=== PATIENT | male | born 1950 | race Caucasian/White ===

== ENCOUNTER 2016-04-12 01:50 | Inpatient (IN) | payer MEDICARE, OTHER ==
[2016-04-12] VITALS (8 sets, daily range): BP systolic 113–148; RESP 18; TEMP 98.5–101.2; Ht 175.3 cm; Wt 95.7 kg
[~2016-04-12] VITALS: Ht 175.3 cm; Wt 95.7 kg
[2016-04-12] MEDS ORDERED: NALOXONE 2 MG/2 ML SYRINGE ONE (02:06)
[2016-04-12] MEDS ORDERED: SODIUM CHLORIDE 0.9% 1,000 ML ONE (04:26)
[2016-04-12] MEDS ORDERED: CEFTRIAXONE 1 GM VIAL ONE (06:29)
[2016-04-12] MEDS ORDERED: SODIUM CHLORIDE 0.9% 100 ML IV ONE (06:30)
[2016-04-12] MEDS ORDERED: ONDANSETRON 4 MG VIAL IV PRN (06:45)
[2016-04-12] MEDS ORDERED: SALINE FLUSH 10 ML FLUSH PRN (06:45)
[2016-04-12] MEDS ORDERED: PHARMACY TO DOSE LEVAQUIN IV SCH (06:45)
[2016-04-12] MEDS: SALINE FLUSH 10 ML FLUSH SCH ×2 (08:00→20:48)
[2016-04-12] MEDS ORDERED: **NOTE TO NURSE XX SCH (09:01)
[2016-04-12] MEDS ORDERED: LEVOFLOXACIN 750 MG/150 ML 150 ML IV SCH (10:15)
[2016-04-12] MEDS: DULoxetine 30 MG CAP PO SCH ×2 (10:48→20:48)
[2016-04-12] MEDS: TAMSULOSIN 0.4 MG CAP PO SCH (10:48)
[2016-04-12] MEDS: CLOPIDOGREL 75 MG TAB PO SCH (10:48)
[2016-04-12] MEDS: PANTOPRAZOLE 40 MG TAB PO SCH (10:48)
[2016-04-12] MEDS: SODIUM CHLORIDE 0.9% 1,000 ML IV SCH ×2 (10:48→20:48)
[2016-04-12] MEDS: ISOSORBIDE MONO 30 MG TAB PO SCH (10:48)
[2016-04-12] MEDS: Aspirin 325 MG TAB PO SCH (10:49)
[2016-04-12] MEDS: RANOLAZINE ER 500 MG TAB PO SCH ×2 (10:49→20:48)
[2016-04-12] MEDS: ACETAMINOPHEN 325 MG TAB PO PRN (13:09)
[2016-04-12] MEDS: TRAMADOL 50 MG TAB PO PRN (19:24)
[2016-04-12] MEDS ORDERED: MISSING DOSE XX ONE (20:30)
[2016-04-12] MEDS: QUEtiapine 25 MG TAB PO SCH (20:48)
[2016-04-12] MEDS: METOPROLOL XL 50 MG TAB PO SCH (20:48)
[2016-04-13] VITALS (7 sets, daily range): BP systolic 129–175; RESP 18–20; TEMP 98.3–99
[2016-04-13] MEDS: TRAMADOL 50 MG TAB PO PRN ×2 (04:03→12:00)
[2016-04-13] MEDS: SODIUM CHLORIDE 0.9% FLUSH BAG 500 ML IV SCH (05:36)
[2016-04-13] MEDS: PANTOPRAZOLE 40 MG TAB PO SCH (06:18)
[2016-04-13] MEDS: SALINE FLUSH 10 ML FLUSH SCH ×2 (08:10→19:59)
[2016-04-13] MEDS: ACETAMINOPHEN 325 MG TAB PO PRN (08:11)
[2016-04-13] MEDS: RANOLAZINE ER 500 MG TAB PO SCH ×2 (08:11→19:56)
[2016-04-13] MEDS: Aspirin 325 MG TAB PO SCH (08:11)
[2016-04-13] MEDS: DULoxetine 30 MG CAP PO SCH ×2 (08:11→19:57)
[2016-04-13] MEDS: TAMSULOSIN 0.4 MG CAP PO SCH (08:11)
[2016-04-13] MEDS: CLOPIDOGREL 75 MG TAB PO SCH (08:12)
[2016-04-13] MEDS: ISOSORBIDE MONO 30 MG TAB PO SCH (08:12)
[2016-04-13] MEDS: LEVOFLOXACIN 750 MG/150 ML 150 ML IV SCH (11:59)
[2016-04-13] MEDS ORDERED: CYCLOBENZAPRINE 10 MG TAB PO PRN (16:50)
[2016-04-13] MEDS ORDERED: MISSING DOSE XX ONE ×3 (17:20→20:15)
[2016-04-13] MEDS: GABAPENTIN 600 MG TAB PO SCH ×2 (17:25→19:57)
[2016-04-13] MEDS: OXYCODONE/APAP 5/325 TAB PO PRN (17:26)
[2016-04-13] MEDS: METOPROLOL XL 50 MG TAB PO SCH (19:57)
[2016-04-13] MEDS: MORPHINE ER 15 MG TAB PO SCH (19:58)
[2016-04-13] MEDS: ZOLPIDEM 5 MG TAB PO SCH (19:58)
[2016-04-13] MEDS: QUEtiapine 25 MG TAB PO SCH (20:36)
[2016-04-14] VITALS (7 sets, daily range): BP systolic 114–137; RESP 16–18; TEMP 97.7–98.7
[2016-04-14] MEDS: TRAMADOL 50 MG TAB PO PRN ×2 (00:55→12:28)
[2016-04-14] MEDS: SODIUM CHLORIDE 0.9% FLUSH BAG 500 ML IV SCH (06:14)
[2016-04-14] MEDS: PANTOPRAZOLE 40 MG TAB PO SCH (06:14)
[2016-04-14] MEDS: OXYCODONE/APAP 5/325 TAB PO PRN ×3 (06:15→22:45)
[2016-04-14] MEDS: DULoxetine 30 MG CAP PO SCH ×2 (09:23→21:27)
[2016-04-14] MEDS: SALINE FLUSH 10 ML FLUSH SCH ×2 (09:23→21:28)
[2016-04-14] MEDS: ISOSORBIDE MONO 30 MG TAB PO SCH (09:23)
[2016-04-14] MEDS: LEVOFLOXACIN 750 MG/150 ML 150 ML IV SCH (09:23)
[2016-04-14] MEDS: GABAPENTIN 600 MG TAB PO SCH ×4 (09:24→21:27)
[2016-04-14] MEDS: RANOLAZINE ER 500 MG TAB PO SCH ×2 (09:24→21:27)
[2016-04-14] MEDS: CLOPIDOGREL 75 MG TAB PO SCH (09:24)
[2016-04-14] MEDS: MORPHINE ER 15 MG TAB PO SCH ×2 (09:24→21:26)
[2016-04-14] MEDS: Aspirin 325 MG TAB PO SCH (09:24)
[2016-04-14] MEDS: TAMSULOSIN 0.4 MG CAP PO SCH (09:24)
[2016-04-14] MEDS: ZOLPIDEM 5 MG TAB PO SCH (21:26)
[2016-04-14] MEDS: QUEtiapine 25 MG TAB PO SCH (21:27)
[2016-04-14] MEDS: METOPROLOL XL 50 MG TAB PO SCH (21:27)
[2016-04-15 04:00] VITALS: BP_SYST 124; RESP 20; TEMP 98.1
[2016-04-15] MEDS: SODIUM CHLORIDE 0.9% FLUSH BAG 500 ML IV SCH (06:00)
[2016-04-15] MEDS: PANTOPRAZOLE 40 MG TAB PO SCH (06:25)
[2016-04-15 07:15] VITALS: BP_SYST 116; RESP 16; TEMP 98.2
[2016-04-15] MEDS: DULoxetine 30 MG CAP PO SCH (08:29)
[2016-04-15] MEDS: CLOPIDOGREL 75 MG TAB PO SCH (08:29)
[2016-04-15] MEDS: Aspirin 325 MG TAB PO SCH (08:29)
[2016-04-15] MEDS: SALINE FLUSH 10 ML FLUSH SCH (08:29)
[2016-04-15] MEDS: GABAPENTIN 600 MG TAB PO SCH ×2 (08:29→13:03)
[2016-04-15] MEDS: TAMSULOSIN 0.4 MG CAP PO SCH (08:29)
[2016-04-15] MEDS: MORPHINE ER 15 MG TAB PO SCH (08:30)
[2016-04-15] MEDS: RANOLAZINE ER 500 MG TAB PO SCH (08:33)
[2016-04-15] MEDS: ISOSORBIDE MONO 30 MG TAB PO SCH (08:33)
[2016-04-15] MEDS ORDERED: LEVOFLOXACIN 750 MG TAB PO SCH (09:00)
[2016-04-15] MEDS: OXYCODONE/APAP 5/325 TAB PO PRN (10:01)
[2016-04-15 11:18] VITALS: BP_SYST 116; RESP 16; TEMP 98.2
[2016-04-15 11:57] VITALS: BP_SYST 111
[2016-04-15 11:58] VITALS: RESP 16; TEMP 98.2
== END 2016-04-15 14:10 | disposition home or self-care (01) | DRG 871 ==
LOC: ENRESERVDT → ENRESERVTM → ER 01:50 → EMR 06:44 → 3NT 08:30 → OBSVTOIN 04-13 17:02 → ENPENDDIS 04-13 17:02
PROVIDERS: ADMIT Family Medicine; ATTEND Family Medicine
DX: A41.9 Sepsis, unspecified organism (principal); J18.9 Pneumonia, unspecified organism; G93.41 Metabolic encephalopathy; N17.9 Acute kidney failure, unspecified; N18.3 Chronic kidney disease, stage 3 (moderate); N39.0 Urinary tract infection, site not specified; B96.20 Unspecified Escherichia coli [E. coli] as the cause of diseases classified elsewhere; I12.9 Hypertensive chronic kidney disease with stage 1 through stage 4 chronic kidney disease, or unspecified chronic kidney disease; F32.9 Major depressive disorder, single episode, unspecified; M54.5 Low back pain; Z95.1 Presence of aortocoronary bypass graft; Z82.49 Family history of ischemic heart disease and other diseases of the circulatory system; Z79.82 Long term (current) use of aspirin
CPT/HCPCS: 36415; 70450; 71010; 80053; 81001; 82553; 82947; 83605; 84484; 85025; 85379; 85610; 85730; 87040; 87071; 87077; 87088; 87186; 87278; 87299; 87804; 94799; 96360; 96365; 96375; 99219; 99232; 99233

== ENCOUNTER 2016-04-24 19:58 | Inpatient (IN) | payer MEDICARE, OTHER ==
[~2016-04-24] VITALS: Ht 175.3 cm; Wt 94.8 kg
[2016-04-24] MEDS ORDERED: SODIUM CHLORIDE 0.9% 1,000 ML ONE (21:22)
[2016-04-24] MEDS ORDERED: SODIUM CHLORIDE 0.9% 100 ML IV ONE ×2 (23:25→23:42)
[2016-04-24] MEDS ORDERED: CEFTRIAXONE 1 GM VIAL ONE ×2 (23:25→23:42)
[2016-04-25] VITALS (7 sets, daily range): BP systolic 117–178; RESP 16–18; TEMP 98–99.4; Ht 175.3 cm; Wt 94.8 kg
[2016-04-25] MEDS ORDERED: ALU/MAG/SIM 30 ML UDC PO PRN (01:00)
[2016-04-25] MEDS ORDERED: SALINE FLUSH 10 ML FLUSH PRN (01:00)
[2016-04-25] MEDS ORDERED: BISACODYL 10 MG SUPP RECTAL PRN (01:00)
[2016-04-25] MEDS ORDERED: MAG HYDROX 30 ML UDC PO PRN (01:00)
[2016-04-25] MEDS ORDERED: ACETAMINOPHEN 325 MG TAB PO PRN (01:00)
[2016-04-25] MEDS ORDERED: SODIUM CHLORIDE 0.9% 1,000 ML IV SCH ×2 (01:00→09:00)
[2016-04-25] MEDS ORDERED: BISACODYL EC 5 MG TAB PO PRN (01:00)
[2016-04-25] MEDS ORDERED: PHARMACY TO DOSE ZOSYN IV SCH (01:10)
[2016-04-25] MEDS: SODIUM CHLORIDE 0.9% FLUSH BAG 500 ML IV SCH (05:57)
[2016-04-25] MEDS: PIPERACIL/TAZO 3.375GM/50ML 50 ML IV SCH ×2 (06:04→12:00)
[2016-04-25] MEDS: SALINE FLUSH 10 ML FLUSH SCH ×2 (06:53→20:00)
[2016-04-25] MEDS: FAMOTIDINE 20 MG TAB PO SCH ×2 (07:41→21:29)
[2016-04-25] MEDS: ENOXAPARIN 30 MG/0.3 ML SYR SUBQ SCH (07:42)
[2016-04-25] MEDS: Aspirin 325 MG TAB PO SCH (11:35)
[2016-04-25] MEDS ORDERED: CEPHALEXIN 500 MG CAP PO SCH (11:35)
[2016-04-25] MEDS: PANTOPRAZOLE 40 MG TAB PO SCH (13:23)
[2016-04-25] MEDS: TAMSULOSIN 0.4 MG CAP PO SCH (13:24)
[2016-04-25] MEDS: CYCLOBENZAPRINE 10 MG TAB PO PRN (13:24)
[2016-04-25] MEDS: DULoxetine 30 MG CAP PO SCH ×2 (13:24→21:29)
[2016-04-25] MEDS: RANOLAZINE ER 500 MG TAB PO SCH ×2 (13:24→21:28)
[2016-04-25] MEDS: ISOSORBIDE MONO 30 MG TAB PO SCH (13:24)
[2016-04-25] MEDS: GABAPENTIN 300 MG CAP PO SCH ×3 (13:25→21:28)
[2016-04-25] MEDS: METOPROLOL XL 100 MG TAB PO SCH (13:25)
[2016-04-25] MEDS: CLOPIDOGREL 75 MG TAB PO SCH (15:05)
[2016-04-25] MEDS: OXYCODONE/APAP 5/325 TAB PO PRN (15:05)
[2016-04-25] MEDS ORDERED: CETIRIZINE 10 MG TAB PO SCH (21:00)
[2016-04-25] MEDS ORDERED: PRAVASTATIN 40 MG TAB PO SCH (21:00)
[2016-04-25] MEDS ORDERED: METOPROLOL XL 50 MG TAB PO SCH (21:00)
[2016-04-25] MEDS ORDERED: QUEtiapine 25 MG TAB PO SCH (21:00)
[2016-04-25] MEDS ORDERED: DIPHENHYDRAMINE 25 MG/10 ML UDC PO ONE (21:10)
[2016-04-26 03:17] VITALS: BP_SYST 152; RESP 22; TEMP 98.7
[2016-04-26] MEDS: SODIUM CHLORIDE 0.9% FLUSH BAG 500 ML IV SCH ×2 (05:30→06:00)
[2016-04-26] MEDS: OXYCODONE/APAP 5/325 TAB PO PRN (06:01)
[2016-04-26] MEDS: CEFTRIAXONE 1 GM in SODIUM CHLORIDE 0.9% 50 ML IV SCH ×2 (07:38→09:29)
[2016-04-26] MEDS: SALINE FLUSH 10 ML FLUSH SCH (07:38)
[2016-04-26 07:53] VITALS: BP_SYST 130; TEMP 98.8
[2016-04-26 07:54] VITALS: RESP 20; TEMP 98.8
[2016-04-26] MEDS: RANOLAZINE ER 500 MG TAB PO SCH (08:07)
[2016-04-26] MEDS: METOPROLOL XL 100 MG TAB PO SCH (08:07)
[2016-04-26] MEDS: ISOSORBIDE MONO 30 MG TAB PO SCH (08:07)
[2016-04-26] MEDS: CYCLOBENZAPRINE 10 MG TAB PO PRN (08:07)
[2016-04-26] MEDS: CLOPIDOGREL 75 MG TAB PO SCH (08:07)
[2016-04-26] MEDS: ENOXAPARIN 30 MG/0.3 ML SYR SUBQ SCH (08:07)
[2016-04-26] MEDS: DULoxetine 30 MG CAP PO SCH (08:07)
[2016-04-26] MEDS: TAMSULOSIN 0.4 MG CAP PO SCH (08:08)
[2016-04-26] MEDS: GABAPENTIN 300 MG CAP PO SCH ×2 (08:08→13:10)
[2016-04-26] MEDS: FAMOTIDINE 20 MG TAB PO SCH (08:12)
[2016-04-26] MEDS: PANTOPRAZOLE 40 MG TAB PO SCH (09:00)
[2016-04-26] MEDS: Aspirin 325 MG TAB PO SCH (09:28)
[2016-04-26 11:33] VITALS: BP_SYST 118; TEMP 98.6
[2016-04-26 11:34] VITALS: RESP 20
[2016-04-26 14:20] VITALS: BP_SYST 118; RESP 20; TEMP 98.6
== END 2016-04-26 14:35 | disposition home or self-care (01) | DRG 918 ==
LOC: ENRESERVDT → ENRESERVTM → ER 19:58 → EMR 04-25 00:59 → ENPENDDIS 04-25 00:59 → PCU2 04-25 02:46
PROVIDERS: ADMIT Internal Medicine; ATTEND Internal Medicine
DX: T50.991A Poisoning by other drugs, medicaments and biological substances, accidental (unintentional), initial encounter (principal); N17.9 Acute kidney failure, unspecified; N18.3 Chronic kidney disease, stage 3 (moderate); I12.9 Hypertensive chronic kidney disease with stage 1 through stage 4 chronic kidney disease, or unspecified chronic kidney disease; R41.82 Altered mental status, unspecified; F32.9 Major depressive disorder, single episode, unspecified; I25.10 Atherosclerotic heart disease of native coronary artery without angina pectoris; Z95.1 Presence of aortocoronary bypass graft; Z79.82 Long term (current) use of aspirin; Z87.891 Personal history of nicotine dependence; M54.5 Low back pain; Z82.49 Family history of ischemic heart disease and other diseases of the circulatory system
CPT/HCPCS: 36415; 70450; 70551; 71010; 80048; 80053; 80061; 80307; 81003; 82553; 82607; 82947; 83605; 84439; 84443; 84484; 85025; 85610; 85730; 87040; 87088; 87804; 93005; 93306; 94799; 96361; 96365; 99233; 99239